=== PATIENT | male | born 1975 | race Two or more races ===

== ENCOUNTER 2017-01-16 01:30 | Emergency (ER) | payer OTHER ==
[2017-01-16] MEDS ORDERED: ASPIRIN 81 MG TABLET, CHEWABLE PO ONE (05:46)
[2017-01-16] MEDS ORDERED: OXYCODONE HCL IR 5 MG TABLET PO ONE (05:49)
[2017-01-16] MEDS ORDERED: ONDANSETRON HCL INJ/PF 4 MG/2 ML SDV IV ONE (05:50)
--- NOTE | 2017-01-16 05:50 | ER Document Report ---
ED Medical Screen (RME) - General Chief Complaint: Chest Pain Stated Complaint: CHEST PAIN Time Seen by Provider: 01/16/17 05:45 Mode of Arrival: Ambulatory Information source: Patient Notes: Patient presents complaining of right-sided chest pain that started yesterday. Patient states pain varies in intensity but is still present. Patient does report some nausea but denies any vomiting. Patient denies any fever or cough. Patient states pain worsens when he lies down. Patient does have tenderness to right upper quadrant area. hx: Back pain and leg pain, hernia repair appendectomy, multiple orthopedic surgeries TRAVEL OUTSIDE OF THE [place] IN LAST 30 DAYS: No - Related Data Allergies/Adverse Reactions: tramadol [Tramadol] Allergy (Verified 03/22/15 20:35) trazodone [Trazodone] Adverse Reaction (Verified 03/19/15 21:44) Past Medical History Renal/ Medical History: Reports: Hx Kidney Stones. Denies: Hx Peritoneal Dialysis Psychiatric Medical History: Reports: Hx Depression Infectious Medical History: Denies: Hx MRSA Past Surgical History: Reports: Hx Abdominal Surgery - hernia repair, Hx Appendectomy, Hx Orthopedic Surgery - right leg, Hx Tonsillectomy - Immunizations Hx Diphtheria, Pertussis, Tetanus Vaccination: Yes Physical Exam - Vital signs Vitals: Temp Pulse Resp BP Pulse Ox 98.4 F 103 H 20 147/79 H 99 01/16/17 01:47 01/16/17 01:47 01/16/17 01:47 01/16/17 01:47 01/16/17 01:47 - Abdominal Tenderness: Tender - Upper quadrant, epigastric Course - Vital Signs Vital signs: Temp Pulse Resp BP Pulse Ox 98.4 F 103 H 20 142/95 H 99 01/16/17 01:47 01/16/17 01:47 01/16/17 01:47 01/16/17 05:32 01/16/17 01:47
[2017-01-16 06:19] LABS: ABSOLUTE BASOPHILS # (AUTO) 0.1 10^3/uL (0.0-0.2); ABSOLUTE EOSINOPHILS # (AUTO) 0.2 10^3/uL (0.0-0.6); ABSOLUTE LYMPHOCYTES (AUTO) 2.6 10^3/uL (0.5-4.7); ABSOLUTE MONOCYTES (AUTO) 0.7 10^3/uL (0.1-1.4); ABSOLUTE NEUT (AUTO) 6.5 10^3/uL (1.7-8.2); BASOPHILS % (AUTO) 0.6 % (0-2); HEMATOCRIT 43.3 % (37.9-51.0); HGB HCT DIFFERENCE 1.7; LYMPHOCYTES % (AUTO) 25.5 % (13-45); MEAN CORPUSCULAR HEMOGLOBIN 29.3 pg (27.0-33.4); MEAN CORPUSCULAR HGB CONC 34.7 g/dL (32.0-36.0); MEAN CORPUSCULAR VOLUME 85 fl (80-97); MONOCYTES % (AUTO) 7.2 % (3-13); RED BLOOD COUNT 5.12 10^6/uL (4.35-5.55); RED CELL DISTRIBUTION WIDTH 13.5 % (11.5-14.0); SEGMENTED NEUTROPHILS % (AUTO) 64.7 % (42-78); WHITE BLOOD COUNT 10.1 10^3/uL (4.0-10.5)
[2017-01-16 06:36] LABS: ALANINE AMINOTRANSFERASE 93 U/L (21-72); ALBUMIN 4.5 g/dL (3.5-5.0); ALKALINE PHOSPHATASE 69 U/L (38-126); ANION GAP 11 (5-19); ASPARTATE AMINO TRANSFERASE 52 U/L (17-59); BILIRUBIN,DIRECT 0.3 mg/dL (0.0-0.4); BILIRUBIN,TOTAL 0.9 mg/dL (0.2-1.3); BLOOD UREA NITROGEN 14 mg/dL (7-20); CALCIUM 9.5 mg/dL (8.4-10.2); CARBON DIOXIDE 26 mmol/L (22-30); CHLORIDE 103 mmol/L (98-107); CREATINE KINASE 228 U/L (55-170); GLUCOSE 107 mg/dL (75-110); LIPASE 80.5 U/L (23-300); POTASSIUM 4.5 mmol/L (3.6-5.0); SODIUM 140.1 mmol/L (137-145); TOTAL PROTEIN 7.7 g/dL (6.3-8.2)
[2017-01-16 06:40] LABS: APPEARANCE,URINE CLEAR; BILIRUBIN,URINE NEGATIVE (NEGATIVE); GLUCOSE, URINE NEGATIVE (NEGATIVE); KETONES,URINE NEGATIVE (NEGATIVE); LEUKOCYTE ESTERASE,URINE NEGATIVE (NEGATIVE); NITRITE,URINE NEGATIVE (NEGATIVE); PROTEIN,URINE NEGATIVE (NEGATIVE); URINE SPECIFIC GRAVITY 1.005; UROBILINOGEN,URINE NEGATIVE mg/dL (<2.0)
[2017-01-16 06:48] LABS: CREATINE KINASE MB 1.61 ng/mL (<4.55)
[2017-01-16 06:49] LABS: TROPONIN I < 0.012 ng/mL
--- NOTE | 2017-01-16 06:50 | RADIOLOGY REPORT (SQ) ---
EXAM DESCRIPTION: U/S ABDOMEN LIMITED W/O DOP COMPLETED DATE/TIME: 01/16/2017 6:38 am REASON FOR STUDY: RUQ pain COMPARISON: CT, 03/19/2015. TECHNIQUE: Dynamic and static grayscale images acquired of the abdomen and recorded on PACS. Additio nal selected color Doppler and spectral images recorded. LIMITATIONS: Body habitus. Bowel gas. FINDINGS: PANCREAS: Obscured. LIVER: Mild hepatomegaly measuring 20 cm. Moderate hepatic steatosis. LIVER VASCULATURE: Normal directional flow of the main portal vein and hepatic veins. GALLBLADDER: No stones. Normal wall thickness. No pericholecystic fluid. ULTRASOUND-DETECTED LOPEZ'S SIGN: Negative. INTRAHEPATIC DUCTS AND COMMON DUCT: CBD and intrahepatic ducts normal caliber. No filling defects. INFERIOR VENA CAVA: Normal flow. AORTA: Obscured. RIGHT KIDNEY: 11.9 cm. Normal size. Normal echogenicity. No solid or suspicious masses. No hydronep hrosis. No calcifications. PERITONEAL AND RIGHT PLEURAL SPACE: No ascites or effusions. OTHER: No other significant findings. IMPRESSION: Mild hepatomegaly. Limitation. TECHNICAL DOCUMENTATION: JOB ID: [id number] [employer]- All Rights Reserved
[2017-01-16 06:52] LABS: URINE BARBITURATES SCREEN NEGATIVE; URINE METHADONE SCREEN NEGATIVE; URINE OPIATES LOW UNCONFIRMED POSITIVE; URINE PHENCYCLIDINE SCREEN NEGATIVE
--- NOTE | 2017-01-16 06:57 | RADIOLOGY REPORT (SQ) ---
EXAM DESCRIPTION: CHEST PA/LAT COMPLETED DATE/TIME: 01/16/2017 6:47 am REASON FOR STUDY: right side cp COMPARISON: CT, chest, 12/29/2009. EXAM PARAMETERS: NUMBER OF VIEWS: two views TECHNIQUE: Digital Frontal and Lateral radiographic views of the chest acquired. RADIATION DOSE: NA LIMITATIONS: none FINDINGS: LUNGS AND PLEURA: No opacities, masses or pneumothorax. No pleural effusion. MEDIASTINUM AND HILAR STRUCTURES: No masses or contour abnormalities. HEART AND VASCULAR STRUCTURES: Heart normal size. No evidence for failure. BONES: No acute findings. HARDWARE: None in the chest. OTHER: No other significant finding. IMPRESSION: NO SIGNIFICANT RADIOGRAPHIC FINDING IN THE CHEST. TECHNICAL DOCUMENTATION: JOB ID: [id number] [employer]- All Rights Reserved
[2017-01-16] MEDS ORDERED: LIDOCAINE 5% (700 MG) TRANSDERMAL ADH..PATCH TP ONE (07:24)
--- NOTE | 2017-01-16 07:24 | ER Document Report ---
ED General - General Chief Complaint: Chest Pain Stated Complaint: CHEST PAIN Time Seen by Provider: 01/16/17 05:45 Mode of Arrival: Ambulatory TRAVEL OUTSIDE OF THE [place] IN LAST 30 DAYS: No - HPI Patient complains to provider of: Chest pain Notes: Patient is coming in for evaluation of right upper chest pain right lower quadrant pain. States ongoing for approximately the last 1224 hrs. Denies any recent travel denies any recent trauma. Denies fevers chills nausea vomiting diarrhea. Patient currently is on multiple pain medications for chronic pain. Upon my evaluation patient is resting comfortably no obvious distress - Related Data Allergies/Adverse Reactions: tramadol [Tramadol] Allergy (Verified 03/22/15 20:35) trazodone [Trazodone] Adverse Reaction (Verified 03/19/15 21:44) Past Medical History - General Information source: Patient - Social History Smoking Status: Unknown if Ever Smoked Family History: Reviewed & Not Pertinent Patient has suicidal ideation: No Patient has homicidal ideation: No Renal/ Medical History: Reports: Hx Kidney Stones. Denies: Hx Peritoneal Dialysis Psychiatric Medical History: Reports: Hx Depression Infectious Medical History: Denies: Hx MRSA Past Surgical History: Reports: Hx Abdominal Surgery - hernia repair, Hx Appendectomy, Hx Orthopedic Surgery - right leg, Hx Tonsillectomy - Immunizations Hx Diphtheria, Pertussis, Tetanus Vaccination: Yes Review of Systems - Review of Systems Constitutional: No symptoms reported EENT: No symptoms reported Cardiovascular: Chest pain Respiratory: No symptoms reported Gastrointestinal: Abdominal pain Genitourinary: No symptoms reported Male Genitourinary: No symptoms reported Musculoskeletal: No symptoms reported Skin: No symptoms reported Hematologic/Lymphatic: No symptoms reported Neurological/Psychological: No symptoms reported -: Yes All other systems reviewed and negative Physical Exam - Vital signs Vitals: Temp Pulse Resp BP Pulse Ox 98.4 F 103 H 20 147/79 H 99 01/16/17 01:47 01/16/17 01:47 01/16/17 01:47 01/16/17 01:47 01/16/17 01:47 Interpretation: Normal - General General appearance: Appears well, Alert - HEENT Head: Normocephalic, Atraumatic Eyes: Normal Pupils: PERRL - Respiratory Respiratory status: No respiratory distress Chest status: Nontender Breath sounds: Normal Chest palpation: Normal - Cardiovascular Rhythm: Regular Heart sounds: Normal auscultation Murmur: No - Abdominal Inspection: Normal Distension: No distension Bowel sounds: Normal Tenderness: Nontender Organomegaly: No organomegaly - Back Back: Normal, Nontender - Extremities General upper extremity: Normal inspection, Nontender, Normal color, Normal ROM , Normal temperature General lower extremity: Normal inspection, Nontender, Normal color, Normal ROM , Normal temperature, Normal weight bearing. No: Lynne's sign - Neurological Neuro grossly intact: Yes Cognition: Normal Orientation: AAOx4 [place] Coma Scale Eye Opening: Spontaneous Cory Coma Scale Verbal: Oriented Cory Coma Scale Motor: Obeys Commands [place] Coma Scale Total: 15 Speech: Normal Motor strength normal: LUE, RUE, LLE, RLE Sensory: Normal - Psychological Associated symptoms: Normal affect, Normal mood - Skin Skin Temperature: Warm Skin Moisture: Dry Skin Color: Normal Course - Re-evaluation Re-evalutation: 01/16/17 10:51 The patient has atypical chest pain as the patient's chest pain is not suggestive of pulmonary embolus, cardiac ischemia, aortic dissection, or other serious etiology. Given the extremely low risk of these diagnoses further testing and evaluation for these possibilities does not appear to be indicated at this time. The patient has been instructed to return if the symptoms worsen or change in any way. - Vital Signs Vital signs: Temp Pulse Resp BP Pulse Ox 98.4 F 103 H 17 128/83 H 99 01/16/17 01:47 01/16/17 01:47 01/16/17 07:04 01/16/17 07:04 01/16/17 07:04 - Laboratory Result Diagrams: 01/16/17 06:06 01/16/17 06:06 Laboratory results interpreted by me: 01/16/17 06:06 ALT 93 H Creatine Kinase 228 H Discharge - Discharge Clinical Impression: Right-sided chest wall pain Condition: Good Disposition: HOME, SELF-CARE Instructions: Chest Wall Pain ([facility]), Chest Pain of Unclear Cause ([facility]) Additional Instructions: Your laboratory studies today show no signs of significant pathology no signs of heart damage pneumonia infection your ultrasound also only shows a fatty liver however no other gallbladder disease. More likely to fatty liver is due to diet. I recommend you follow-up with your primary care physician. Please continue take your medications as prescribed. If you receive good pain relief with the Lidoderm patch I would highly recommend following up with your pharmacist to ask about [id number] options if he cannot afford the prescription. Prescriptions: Lidocaine [Lidoderm 5% (700 mg) Transdermal Patch] 1 patch TP DAILY #10 adh..patch Forms: Return to Work
[2017-01-16 08:12] VITALS: BP 128/83
--- NOTE | 2017-01-18 09:27 | EKG REPORT ---
SEVERITY:- BORDERLINE ECG - SINUS TACHYCARDIA BORDERLINE LEFT AXIS DEVIATION BORDERLINE T WAVE ABNORMALITIES : Confirmed by: Tony Marrero 18-Jan-2017 09:26:50
== END 2017-01-16 07:54 | disposition home or self-care (01) ==
LOC: ER 01:30
DX: R07.89 Other chest pain (principal); R10.31 Right lower quadrant pain; G89.29 Other chronic pain; Z79.899 Other long term (current) drug therapy; Z88.5 Allergy status to narcotic agent; Z87.442 Personal history of urinary calculi; Z90.49 Acquired absence of other specified parts of digestive tract
CPT/HCPCS: 93005; 99285; 96374; 36415; 82553; 82550; 83690; 85025; 80053; 81001; 84484; 80307; 71020; 76705; 93010; J2405

== ENCOUNTER 2017-04-29 14:28 | Emergency (ER) | payer OTHER ==
[2017-04-29 15:02] VITALS: BP 166/85
--- NOTE | 2017-04-29 16:37 | RADIOLOGY REPORT (SQ) ---
EXAM DESCRIPTION: HAND LEFT 3 VIEWS COMPLETED DATE/TIME: 04/29/2017 3:45 pm REASON FOR STUDY: finger pain COMPARISON: 02/26/2013 EXAM PARAMETERS: NUMBER OF VIEWS: Three views. TECHNIQUE: AP, lateral and oblique radiographic images acquired of the left hand. LIMITATIONS: None. FINDINGS: Normal bone density. No acute fracture. There are postsurgical changes along the 3rd finger DIP joint and distal phalanx radial aspect, with resection of some of the soft tissue and radial base of the distal phalanx. This is unchanged from . Along the 2nd finger DIP joint, a 1.3 x 0.8 cm soft tissue nodule is present containing a single smal l calcification. There is adjacent pressure erosion of the radial base 2nd finger distal phalanx sim ilar compared to 02/26/2013. In the middle phalanx 2nd finger, a benign-appearing chondroid lesion is present. Remainder of the hand is otherwise unremarkable. IMPRESSION: No acute findings. Postsurgical changes 3rd finger near the DIP joint. Small soft tissue nodule is present along the radial aspect, 2nd finger DIP joint. There is benign-a ppearing pressure erosion along the radial base of the distal phalanx, unchanged from 02/26/2013 TECHNICAL DOCUMENTATION: JOB ID: [id number] [employer]- All Rights Reserved
[2017-04-29] MEDS ORDERED: OXYCODONE-ACETAMINOPHEN 5-325 MG TABLET PO ONE (16:50)
[2017-04-29] MEDS ORDERED: SULFAMETHOXAZOLE/TRIMETHOPRIM 800-160 MG TABLET PO ONE (16:50)
--- NOTE | 2017-04-29 16:51 | ER Document Report ---
ED Hand/Wrist Injury - General Chief Complaint: Hand Pain Stated Complaint: LEFT FINGER PAIN Time Seen by Provider: 04/29/17 16:23 Mode of Arrival: Ambulatory Information source: Patient TRAVEL OUTSIDE OF THE [place] IN LAST 30 DAYS: No - HPI Patient complains to provider of: Finger pain and swelling with redness Injury to: Index finger Onset: Yesterday Timing: Worse Quality of pain: Achy, Pressure Severity: Moderate Pain Level: 4 Notes: Patient is a 42-year-old male presenting to the emergency room complaining of painful redness and swelling to the distal portion of his left second finger, symptoms have been going on for the past 2-3 days, he has a history of infection to this area intermittently since having a crush injury to the fingers in 2012, states he generally uses a pair of pliers to remove the nail from this finger because he has an ingrown fingernail regularly, he reports expressing purulent fluid from the finger over the last 2-3 days, denies any fevers, no new injury, patient was sent from the [place] clinic for evaluation and treatment - Related Data Allergies/Adverse Reactions: No Known Allergies Allergy (Unverified 04/29/17 15:02) Past Medical History - General Information source: Patient - Social History Smoking Status: Unknown if Ever Smoked Chew tobacco use (# tins/day): No Frequency of alcohol use: None Drug Abuse: None Family History: Reviewed & Not Pertinent Patient has suicidal ideation: No Patient has homicidal ideation: No Renal/ Medical History: Reports: Hx Kidney Stones. Denies: Hx Peritoneal Dialysis Psychiatric Medical History: Reports: Hx Depression Infectious Medical History: Denies: Hx MRSA Past Surgical History: Reports: Hx Abdominal Surgery - hernia repair, Hx Appendectomy, Hx Orthopedic Surgery - right leg, Hx Tonsillectomy - Immunizations Hx Diphtheria, Pertussis, Tetanus Vaccination: Yes Review of Systems - Review of Systems Constitutional: No symptoms reported EENT: No symptoms reported Cardiovascular: No symptoms reported Respiratory: No symptoms reported Gastrointestinal: No symptoms reported Genitourinary: No symptoms reported Male Genitourinary: No symptoms reported Musculoskeletal: No symptoms reported Skin: See HPI Hematologic/Lymphatic: No symptoms reported Neurological/Psychological: No symptoms reported -: Yes All other systems reviewed and negative Physical Exam - Vital signs Vitals: Temp Pulse Resp BP Pulse Ox 99.2 F 84 18 166/85 H 99 04/29/17 14:59 04/29/17 14:59 04/29/17 14:59 04/29/17 14:59 04/29/17 14:59 - Notes Notes: - General General appearance: Appears well, Alert In distress: None - HEENT Head: Normocephalic, Atraumatic Eyes: Normal Conjunctiva: Normal Extraocular movements intact: Yes Eyelashes: Normal Pupils: PERRL - Respiratory Respiratory status: No respiratory distress - Cardiovascular Rhythm: Regular - Abdominal Inspection: Normal - Back Back: Normal - Extremities General upper extremity: Distal portion of left second digit erythematous with mild swelling, no purulent discharge, tender to palpate, distal sensation and motor is intact with brisk capillary refill General lower extremity: Normal inspection - Neurological Neuro grossly intact: Yes Orientation: AAOx4 Cory Coma Scale Eye Opening: Spontaneous [place] Coma Scale Verbal: Oriented Cory Coma Scale Motor: Obeys Commands [place] Coma Scale Total: 15 - Psychological Associated symptoms: Normal affect, Normal mood - Skin Skin Temperature: Warm Skin Moisture: Dry Skin Color: Normal Course - Re-evaluation Re-evalutation: 04/29/17 17:40 Patient's physical exam findings are consistent with cellulitis to the distal portion of the left second digit, history of this recurring since having a traumatic injury to this area 3 years ago, patient reports he usually takes oral antibiotics and it resolves intermittently, he has never been seen by a hand surgeon in the past for this but was sent from the [place] clinic, patient was started on oral antibiotics and pain medication and given information to follow- up with orthopedics for further evaluation and treatment, patient acknowledges understanding and agreement with this plan - Vital Signs Vital signs: Temp Pulse Resp BP Pulse Ox 99.2 F 84 18 166/85 H 99 04/29/17 14:59 04/29/17 14:59 04/29/17 14:59 04/29/17 14:59 04/29/17 14:59 - Diagnostic Test Radiology reviewed: Image reviewed, Reports reviewed Discharge - Discharge Clinical Impression: Cellulitis of finger of left hand Condition: Stable Disposition: HOME, SELF-CARE Instructions: Cellulitis ([facility]) Additional Instructions: Follow up with your primary care provider and an orthopedic surgeon in one to 2 days. Return to the emergency room immediately if symptoms worsen or any additional concerns. Prescriptions: Oxycodone HCl/Acetaminophen [Percocet 5-325 mg Tablet] 1 - 2 tab PO ASDIR PRN # 15 tablet PRN Reason: Sulfamethoxazole/Trimethoprim [Bactrim Ds Tablet] 1 each PO BID #20 tablet Referrals: DEBO GUPTA DO [ACTIVE STAFF] - Follow up as needed
== END 2017-04-29 17:03 | disposition home or self-care (01) ==
LOC: ER 14:28
DX: L03.012 Cellulitis of left finger (principal); Z87.828 Personal history of other (healed) physical injury and trauma
CPT/HCPCS: 99283

== ENCOUNTER 2017-09-08 01:42 | Emergency (ER) | payer OTHER ==
--- NOTE | 2017-09-08 02:47 | ER Document Report ---
ED General - General Chief Complaint: Flu Symptoms Stated Complaint: COLD SYMPTOMS Time Seen by Provider: 09/08/17 02:38 Notes: Patient is a 42-year-old male who presents with complaint of congestion and cough. No sore throat. He had a fever 102 at home which broke this morning with [id number] medications. He said no fever since. He has no chronic medical problems. Is a healthy homer. He does not smoke. Denies abdominal pain. No nausea vomiting. No chest pain. He has been coughing up yellowish greenish type sputum. No other complaints at this time. TRAVEL OUTSIDE OF THE [place] IN LAST 30 DAYS: No - Related Data Allergies/Adverse Reactions: No Known Allergies Allergy (Verified 09/08/17 01:43) Past Medical History - Social History Smoking Status: Never Smoker Chew tobacco use (# tins/day): No Frequency of alcohol use: None Drug Abuse: None Family History: Reviewed & Not Pertinent Patient has suicidal ideation: No Patient has homicidal ideation: No Renal/ Medical History: Reports: Hx Kidney Stones. Denies: Hx Peritoneal Dialysis Psychiatric Medical History: Reports: Hx Depression Infectious Medical History: Denies: Hx MRSA Past Surgical History: Reports: Hx Abdominal Surgery - hernia repair, Hx Appendectomy, Hx Orthopedic Surgery - right leg, Hx Tonsillectomy - Immunizations Hx Diphtheria, Pertussis, Tetanus Vaccination: Yes Review of Systems - Review of Systems Notes: My Normal Review Basic REVIEW OF SYSTEMS: CONSTITUTIONAL : Fevers. EENT: Congestion. RESPIRATORY: Productive cough. GASTROINTESTINAL: Denies abdominal pain. Denies nausea, vomiting, or diarrhea. Denies constipation. Last BM: MUSCULOSKELETAL: Denies neck or back pain or joint pain or swelling. SKIN: Denies rash or skin lesions. NEUROLOGICAL: Denies altered mental status or loss of consciousness. Denies headache. Denies weakness or paralysis or loss of use of either side. Denies problems with gait or speech. Denies sensory or motor loss. ALL OTHER SYSTEMS REVIEWED AND NEGATIVE. Physical Exam - Vital signs Vitals: Temp Pulse Resp BP Pulse Ox 98.5 F 80 18 137/96 H 97 09/08/17 01:53 09/08/17 01:53 09/08/17 01:53 09/08/17 01:53 09/08/17 01:53 - Notes Notes: General Appearance: Well nourished, alert, cooperative, no acute distress, no obvious discomfort. Well-appearing. Vitals: reviewed, See vital signs table. Head: no swelling or tenderness to the head Eyes: PERRL, EOMI, Conjuctiva clear Mouth: No decreasd moisture Throat: No tonsillar inflammation, No airway obstruction, No lymphadenopathy Ears: Normal-appearing tympanic membranes bilaterally. Neck: No neck swelling. No lymphadenopathy. Lungs: No wheezing, No rales, No rhonci, No accessory muscle use, good air exchange bilaterally. Heart: Normal rate, Regular rythm, No murmur, no rub Abdomen: Normal BS, soft, No rigidity, No abdominal tenderness, No guarding, no rebound, no abdominal masses, no organomegaly Extremities: strength 5/5 in all extremities, good pulses in all extremities, no swelling or tenderness in the extremities, no edema. Skin: warm, dry, appropriate color, no rash Neuro: speech clear, oriented x 3, normal affect, responds appropriately to questions. Course - Re-evaluation Re-evalutation: 09/08/17 06:47 Patient has recurrent dry cough on exam but clinically looks well. His lung garcia are clear. Chest x-rays obtained is negative for pneumonia. Feel he is safe to be discharged home. Most likely has a viral illness causing his cough and congestion. I encouraged him to continue treat his fever symptomatically with Tylenol Motrin. I will prescribe some Tessalon Perles to help with his cough. I encourage him return to ER if he has worsening fevers, difficulty breathing, or feels that he is worsening. Patient agrees with plan will be discharged home. Dictation of this chart was performed using voice recognition software; therefore, there may be some unintended grammatical errors. - Vital Signs Vital signs: Temp Pulse Resp BP Pulse Ox 98.6 F 76 20 135/86 H 98 09/08/17 04:49 09/08/17 04:49 09/08/17 04:49 09/08/17 04:49 09/08/17 04:49 Discharge - Discharge Clinical Impression: Cough Condition: Good Disposition: HOME, SELF-CARE Additional Instructions: Please return to the ER immediately if you develop difficulty breathing, fevers , or feel unwell. Prescriptions: Benzonatate [Tessalon Perle 100 mg Capsule] 100 mg PO Q8HP PRN #20 cap PRN Reason:
--- NOTE | 2017-09-08 03:34 | RADIOLOGY REPORT (SQ) ---
EXAM DESCRIPTION: CHEST PA/LAT COMPLETED DATE/TIME: 09/08/2017 3:00 am REASON FOR STUDY: cough COMPARISON: Chest x-ray 01/16/2017. EXAM PARAMETERS: NUMBER OF VIEWS: two views TECHNIQUE: Digital Frontal and Lateral radiographic views of the chest acquired. RADIATION DOSE: NA LIMITATIONS: none FINDINGS: LUNGS AND PLEURA: No consolidation, pneumothorax or pleural effusion. MEDIASTINUM AND HILAR STRUCTURES: No masses or contour abnormalities. HEART AND VASCULAR STRUCTURES: Heart normal size. No evidence for failure. BONES: No acute findings. HARDWARE: None in the chest. IMPRESSION: No acute radiographic finding in the chest. TECHNICAL DOCUMENTATION: JOB ID: [id number] [employer]- All Rights Reserved
[2017-09-08 04:50] VITALS: BP 135/86
== END 2017-09-08 04:00 | disposition home or self-care (01) ==
LOC: ER 01:42
DX: R05 Cough (principal); R50.9 Fever, unspecified
CPT/HCPCS: 71046; 99283

== ENCOUNTER 2019-12-03 08:03 | Emergency (ER) | payer OTHER ==
[2019-12-03 08:07] VITALS: BP 158/75
--- NOTE | 2019-12-03 08:58 | ER Document Report ---
ED General - General Chief Complaint: Fall Stated Complaint: FALL/ARM PAIN Time Seen by Provider: 12/03/19 08:22 Primary Care Provider: [place] [Primary Care Provider] - Follow up as needed TRAVEL OUTSIDE OF THE [place] IN LAST 30 DAYS: No - HPI Notes: Chief complaint: Injury left forearm History of present illness: 44-year-old male stumbled over a curb in a parking lot as he was entering a store 5 days ago. He fell and caught himself on his outstretched left hand. He initially had pain and stiffness involving the left shoulder and left wrist and left elbow. He has been treating this himself with [id number] ibuprofen and ice packs. Symptoms have been generally improved except for the area of the mid forearm where he has persistent pain and swelling and he decided that he should come in get an x-ray. He denies any associated head or neck injury. He did sustain an abrasion of his left hallux and he has been treating this with antibiotic ointment and reports improvement. Patient is followed at the [facility] outpatient clinic. He is a type II diabetic. - Related Data Allergies/Adverse Reactions: No Known Allergies Allergy (Verified 09/08/17 01:43) Past Medical History - General Information source: Patient - Social History Smoking Status: Never Smoker Frequency of alcohol use: None Drug Abuse: None Occupation: Retired Family History: Reviewed & Not Pertinent - Past Medical History Cardiac Medical History: Reports: None Pulmonary Medical History: Reports: None Endocrine Medical History: Reports: Hx Diabetes Mellitus Type 2 Renal/ Medical History: Reports: Hx Kidney Stones. Denies: Hx Peritoneal Dialysis Musculoskeletal Medical History: Reports Hx Musculoskeletal Trauma Psychiatric Medical History: Reports: Hx Depression Infectious Medical History: Denies: Hx MRSA Past Surgical History: Reports: Hx Abdominal Surgery - hernia repair, Hx Appendectomy, Hx Orthopedic Surgery - right leg, Hx Tonsillectomy - Immunizations Hx Diphtheria, Pertussis, Tetanus Vaccination: Yes Review of Systems - Review of Systems Notes: Constitutional: Negative for fever. HENT: Negative for sore throat. Eyes: Negative for visual changes. Cardiovascular: Negative for chest pain. Respiratory: Negative for shortness of breath. Gastrointestinal: Negative for abdominal pain, vomiting or diarrhea. Genitourinary: Negative for dysuria. Musculoskeletal: As per HPI. Skin: Negative for rash. Neurological: Negative for headaches, weakness or numbness. 10 point ROS negative except as marked above and in HPI. Physical Exam - Vital signs Vitals: Temp Pulse Resp BP Pulse Ox 98.3 F 79 18 158/75 H 97 12/03/19 08:06 12/03/19 08:06 12/03/19 08:06 12/03/19 08:06 12/03/19 08:06 - Notes Notes: GENERAL: Stocky male approximately stated age appearing in no acute distress. SKIN: Good turgor no rashes. Patient has a healing abrasion along the lateral aspect of the left hallux at the level of the MTP joint which measures approximately 1.5 cm's in diameter. There is no redness or drainage associated with this and no tenderness. HEAD: Normocephalic atraumatic. EYES: PERRLA. EOMI. Conjunctivae and sclerae clear. NECK: Supple. No masses or thyromegaly. No adenopathy. Carotids 2+ without bruits. No JVD. BACK: Symmetrical without tenderness. CHEST: Respirations unlabored. Breath sounds clear and symmetrical. HEART: Regular rhythm. No murmur gallop or rub. ABDOMEN: Soft nontender without masses, organomegaly or rebound. Bowel sounds normally active. No bruits. EXTREMITIES: Mild soft tissue swelling and tenderness mid forearm area on the left. No crepitus. No bony step-off good range of motion all joints with no other areas of tenderness appreciated. No calf tenderness. Cap refill less than 1.5 seconds. Dorsalis pedis and posterior tibial pulses 3+ and symmetrical. NEUROLOGICAL: Alert and oriented x3. Nonfocal. PSYCHIATRIC: Appropriate affect. Course - Vital Signs Vital signs: Temp Pulse Resp BP Pulse Ox 98.3 F 79 18 158/75 H 97 12/03/19 08:50 12/03/19 08:06 12/03/19 08:06 12/03/19 08:06 12/03/19 08:06 Discharge - Discharge Clinical Impression: Contusion of left forearm Qualifiers: Encounter type: initial encounter Qualified Code(s): S50.12XA - Contusion of left forearm, initial encounter Condition: Stable Disposition: HOME, SELF-CARE Additional Instructions: Ice packs as needed. Use sling as directed. Ibuprofen as needed. Follow-up with your doctor at the [place] [facility]. Return here as needed for new or worsening symptoms. Referrals: [facility] [Primary Care Provider] - Follow up as needed
--- NOTE | 2019-12-03 09:38 | RADIOLOGY REPORT (SQ) ---
EXAM DESCRIPTION: FOREARM LEFT COMPLETED DATE/TIME: 12/03/2019 9:24 am REASON FOR STUDY: injury COMPARISON: None. NUMBER OF VIEWS: Two views. TECHNIQUE: Two radiographic images acquired of the left forearm, including elbow and wrist in at matt st one projection. LIMITATIONS: None. FINDINGS: MINERALIZATION: Normal. BONES: No acute fracture. No worrisome bone lesions. SOFT TISSUES: No obvious swelling or foreign body. OTHER: No other significant finding. IMPRESSION: NEGATIVE STUDY OF THE LEFT FOREARM. NO RADIOGRAPHIC EVIDENCE OF ACUTE INJURY. TECHNICAL DOCUMENTATION: JOB ID: [id number] 2010 [employer]- All Rights Reserved Reading location - IP/workstation name: [email or web address]INTENANCE [email or web address]
== END 2019-12-03 11:25 | disposition home or self-care (01) ==
LOC: ER 08:03
DX: S50.12XA Contusion of left forearm, initial encounter (principal); M79.602 Pain in left arm; W10.1XXA Fall (on)(from) sidewalk curb, initial encounter; Y92.481 Parking lot as the place of occurrence of the external cause; E11.9 Type 2 diabetes mellitus without complications; Z87.442 Personal history of urinary calculi
CPT/HCPCS: 99283

== ENCOUNTER 2020-06-24 12:31 | Emergency (ER) | payer OTHER ==
[2020-06-24] MEDS ORDERED: ONDANSETRON 4 MG TAB.RAPDIS PO ONE (13:23)
[2020-06-24] MEDS ORDERED: KETOROLAC TROMETHAMINE 60 MG/2 ML SDV IM ONE (13:23)
--- NOTE | 2020-06-24 13:26 | ER Document Report ---
ED Medical Screen (RME) - General Chief Complaint: Flank Pain Stated Complaint: FLANK PAIN Time Seen by Provider: 06/24/20 13:22 Primary Care Provider: DANITA ARTHUR [Primary Care Provider] - Follow up as needed Mode of Arrival: Ambulatory Information source: Patient Notes: 45-year-old male presented to ED for complaint of right flank pain with nausea. He states the pain started on Wednesday and he does have blood in his urine. He does have a history of kidney stones. He states the last 1 was in 2015 at which time he had a lithotripsy. Is alert oriented respirations regular nonlabored speaking in full sentences. We will give him a shot of Toradol ODT Zofran and get his blood urine and a CT abdomen pelvis with no contrast. He will be seen by another provider. I have greeted and performed a rapid initial assessment of this patient. A comprehensive ED assessment and evaluation of the patient, analysis of test results and completion of medical decision making process will be conducted by an additional ED providers. TRAVEL OUTSIDE OF THE [place] IN LAST 30 DAYS: No - Related Data Allergies/Adverse Reactions: No Known Allergies Allergy (Verified 06/24/20 13:23) Past Medical History Endocrine Medical History: Reports: Hx Diabetes Mellitus Type 2 Renal/ Medical History: Reports: Hx Kidney Stones. Denies: Hx Peritoneal Dialysis Musculoskeltal Medical History: Reports Hx Musculoskeletal Trauma Psychiatric Medical History: Reports: Hx Depression Infectious Medical History: Denies: Hx MRSA Past Surgical History: Reports: Hx Abdominal Surgery - hernia repair, Hx Appendectomy, Hx Orthopedic Surgery - right leg, Hx Tonsillectomy - Immunizations Hx Diphtheria, Pertussis, Tetanus Vaccination: Yes Physical Exam - Vital signs Vitals: Temp Pulse Resp BP Pulse Ox 98.4 F 85 18 187/89 H 99 06/24/20 13:15 06/24/20 13:15 06/24/20 13:15 06/24/20 13:15 06/24/20 13:15 Course - Vital Signs Vital signs: Temp Pulse Resp BP Pulse Ox 98.4 F 85 18 187/89 H 99 06/24/20 13:15 06/24/20 13:15 06/24/20 13:15 06/24/20 13:15 06/24/20 13:15 Doctor's Discharge - Discharge Referrals: [facility] [Primary Care Provider] - Follow up as needed
--- NOTE | 2020-06-24 13:53 | RADIOLOGY REPORT (SQ) ---
EXAM DESCRIPTION: CT ABD/PELVIS NO ORAL OR IV IMAGES COMPLETED DATE/TIME: 06/24/2020 1:32 pm REASON FOR STUDY: Right flank pain COMPARISON: None. TECHNIQUE: CT scan of the abdomen and pelvis performed without intravenous or oral contrast. Images reviewed with lung, soft tissue, and bone windows. Reconstructed coronal and sagittal MPR images revi ewed. All images stored on PACS. All CT scanners at this facility use dose modulation, iterative reconstruction, and/or weight based d osing when appropriate to reduce radiation dose to as low as reasonably achievable (ALARA). [facility]: Dose Right [facility]: CareDose [facility]: Dose Right [facility]: Teradose 4D [facility]: Smart [employer] RADIATION DOSE: CT Rad equipment meets quality standard of care and radiation dose reduction techniq ues were employed. CTDIvol: 19.2 mGy. DLP: 1130 mGy-cm. LIMITATIONS: None. FINDINGS: LOWER CHEST: Very tiny nodule in the left lower lobe, image 6, series 4. NON-CONTRASTED LIVER, SPLEEN, ADRENALS: Hepatic steatosis. Hepatomegaly, the liver measures 22-23.0 cm in length. The spleen measures 13.7 cm in length and is mildly prominent in size. Evaluation li mited by lack of IV contrast. PANCREAS: No masses. No peripancreatic inflammatory changes. GALLBLADDER: No identified stones by CT criteria. No inflammatory changes to suggest cholecystitis. RIGHT KIDNEY AND URETER: No suspicious masses. Assessment limited by lack of IV contrast. No signif icant calcifications. No hydronephrosis or hydroureter. LEFT KIDNEY AND URETER: No suspicious masses. Assessment limited by lack of IV contrast. No signifi cant calcifications. No hydronephrosis or hydroureter. AORTA AND RETROPERITONEUM: No aneurysm. No retroperitoneal masses or adenopathy. BOWEL AND PERITONEAL CAVITY: No obvious masses or inflammatory changes. No free fluid. APPENDIX: Prior appendectomy. PELVIS, BLADDER, AND ABDOMINAL WALL: Fat containing left inguinal hernia. No free fluid. Bladder i ncompletely distended. BONES: No significant findings. OTHER: No other significant finding. IMPRESSION: 1. NO ACUTE PROCESS IN THE ABDOMEN OR PELVIS. 2. Hepatic steatosis. Hepatomegaly. 3. The spleen is mildly prominent. 4. Prior appendectomy. 5. Fat containing left inguinal hernia. COMMENT: Quality ID # [id number]: Final reports with documentation of one or more dose reduction techniques (e.g., Automated exposure control, adjustment of the mA and/or kV according to patient size, use of iterative reconstruction technique) TECHNICAL DOCUMENTATION: JOB ID: [id number] 2010 [employer]- All Rights Reserved Reading location - IP/workstation name: [email or web address]
[2020-06-24 14:09] LABS: APPEARANCE,URINE SLIGHTLY-CLOUDY; BILIRUBIN,URINE NEGATIVE (NEGATIVE); COLOR,URINE YELLOW; GLUCOSE, URINE NEGATIVE (NEGATIVE); KETONES,URINE NEGATIVE (NEGATIVE); LEUKOCYTE ESTERASE,URINE NEGATIVE (NEGATIVE); NITRITE,URINE NEGATIVE (NEGATIVE); PROTEIN,URINE 100 mg/dL (NEGATIVE); URINE SPECIFIC GRAVITY 1.026; UROBILINOGEN,URINE NEGATIVE mg/dL (<2.0)
[2020-06-24 14:38] LABS: ABSOLUTE EOSINOPHILS # (AUTO) 0.2 10^3/uL (0.0-0.6); ABSOLUTE LYMPHOCYTES (AUTO) 2.7 10^3/uL (0.5-4.7); ABSOLUTE MONOCYTES (AUTO) 0.5 10^3/uL (0.1-1.4); ABSOLUTE NEUT (AUTO) 5.9 10^3/uL (1.7-8.2); BASOPHILS % (AUTO) 0.4 % (0-2); EOSINOPHILS % (AUTO) 1.7 % (0-6); HEMATOCRIT 40.7 % (37.9-51.0); HEMOGLOBIN 13.7 g/dL (13.5-17.0); LYMPHOCYTES % (AUTO) 29.5 % (13-45); MEAN CORPUSCULAR HEMOGLOBIN 27.4 pg (27.0-33.4); MEAN CORPUSCULAR HGB CONC 33.8 g/dL (32.0-36.0); MEAN CORPUSCULAR VOLUME 81 fl (80-97); MONOCYTES % (AUTO) 4.9 % (3-13); PLATELET COUNT 207 10^3/uL (150-450); RED BLOOD COUNT 5.01 10^6/uL (4.35-5.55); RED CELL DISTRIBUTION WIDTH 14.6 % (11.5-14.0); SEGMENTED NEUTROPHILS % (AUTO) 63.5 % (42-78); TOTAL CELLS COUNTED % (AUTO) 100 %; WHITE BLOOD COUNT 9.3 10^3/uL (4.0-10.5)
[2020-06-24 16:11] LABS: ALBUMIN 4.2 g/dL (3.5-5.0); ALKALINE PHOSPHATASE 118 U/L (38-126); ANION GAP 10 (5-19); ASPARTATE AMINO TRANSFERASE 66 U/L (17-59); BILIRUBIN,DIRECT 0.2 mg/dL (0.0-0.4); BILIRUBIN,TOTAL 0.5 mg/dL (0.2-1.3); BLOOD UREA NITROGEN 10 mg/dL (7-20); CALCIUM 9.9 mg/dL (8.4-10.2); CARBON DIOXIDE 31 mmol/L (22-30); CHLORIDE 96 mmol/L (98-107); GLUCOSE 212 mg/dL (75-110); POTASSIUM 4.1 mmol/L (3.6-5.0); TOTAL PROTEIN 7.6 g/dL (6.3-8.2)
[2020-06-24] MEDS ORDERED: VALACYCLOVIR HCL 500 MG TABLET PO ONE (16:53)
[2020-06-24] MEDS ORDERED: LIDOCAINE 5% (700 MG) TRANSDERMAL ADH..PATCH TP ONE (16:53)
--- NOTE | 2020-06-24 17:05 | ER Document Report ---
ED GI/ - General Chief Complaint: Flank Pain Stated Complaint: FLANK PAIN Time Seen by Provider: 06/24/20 13:22 Primary Care Provider: [facility] [Provider Group] - Follow up tomorrow [facility] [[facility]] - Follow up as needed Mode of Arrival: Ambulatory Information source: Patient Notes: Patient presents complaining of right flank pain for the past 3 days. Patient states pain has been constant. Patient reports nausea. Patient denies any vomiting or diarrhea. Patient denies any fever. Patient states he has noticed some blood in his urine. Patient reports a history of kidney stones in the past. TRAVEL OUTSIDE OF THE [place] IN LAST 30 DAYS: No - HPI Patient complains to provider of: Abdominal pain, Flank pain. No: Dysuria, Vomiting Onset: Other - 3 days Timing/Duration: Persistent Quality of pain: Achy Pain Level: 3 Location: RLQ, Right flank Associated symptoms: Hematuria. denies: Diarrhea, Dysuria, Fever, Nausea, Urinary hesitancy, Urinary frequency, Urinary retention, Urinary urgency, Vomiting Exacerbated by: Denies Relieved by: Denies Similar symptoms previously: Yes Recently seen / treated by doctor: No - Related Data Allergies/Adverse Reactions: No Known Allergies Allergy (Verified 06/24/20 13:23) Past Medical History - General Information source: Patient - Social History Smoking Status: Never Smoker Chew tobacco use (# tins/day): No Drug Abuse: None Occupation: None Lives with: Family Family History: Reviewed & Not Pertinent Patient has homicidal ideation: No Endocrine Medical History: Reports: Hx Diabetes Mellitus Type 2 Renal/ Medical History: Reports: Hx Kidney Stones. Denies: Hx Peritoneal Dialysis Musculoskeletal Medical History: Reports Hx Musculoskeletal Trauma Psychiatric Medical History: Reports: Hx Depression Infectious Medical History: Denies: Hx MRSA Past Surgical History: Reports: Hx Abdominal Surgery - hernia repair, Hx Appendectomy, Hx Orthopedic Surgery - right leg, Hx Tonsillectomy - Immunizations Hx Diphtheria, Pertussis, Tetanus Vaccination: Yes Review of Systems - Review of Systems Constitutional: No symptoms reported. denies: Fever EENT: No symptoms reported Cardiovascular: No symptoms reported. denies: Chest pain Respiratory: No symptoms reported. denies: Cough, Short of breath Gastrointestinal: Abdominal pain. denies: Diarrhea, Nausea, Vomiting Genitourinary: Flank pain, Hematuria. denies: Dysuria, Frequency Male Genitourinary: No symptoms reported Musculoskeletal: Back pain Skin: Rash Hematologic/Lymphatic: No symptoms reported Neurological/Psychological: No symptoms reported Physical Exam - Vital signs Vitals: Temp Pulse Resp BP Pulse Ox 98.4 F 85 18 187/89 H 99 06/24/20 13:15 06/24/20 13:15 06/24/20 13:15 06/24/20 13:15 06/24/20 13:15 - Notes Notes: PHYSICAL EXAMINATION: GENERAL: Well-appearing and in no acute distress. HEAD: Atraumatic, normocephalic. EYES: sclera anicteric, conjunctiva are normal. ENT: nares patent. Moist mucous membranes. NECK: Normal range of motion, supple without lymphadenopathy LUNGS: CTAB and equal. No wheezes rales or rhonchi. HEART: Regular rate and rhythm without murmurs ABDOMEN: Morbidly obese, soft, nontender, normal bowel sounds, no guarding. EXTREMITIES: Normal range of motion, no pitting edema. No cyanosis. BACK: No midline tenderness, no step-off or deformity. Right CVA tenderness NEUROLOGICAL: Cranial nerves grossly intact. Normal speech. PSYCH: Normal mood, normal affect. SKIN: Warm, Dry, normal turgor, patient with vesicular rash to the right side of abdomen Course - Re-evaluation Re-evalutation: 06/24/20 17:00 Patient with incidental hematuria, patient encouraged to follow-up with urology for further evaluation of this finding. No evidence of any obstructive uropathy noted on CT scan. Patient does have vesicular skin rash to right side of abdomen worrisome for shingles. Patient states he has had shingles in the past. Suspect this is the likely cause of patient's pain symptoms at this time. Patient verbalized understanding and is agreeable to discharge plan of care at this time. - Vital Signs Vital signs: Temp Pulse Resp BP Pulse Ox 98.5 F 80 16 145/70 H 100 06/24/20 17:13 06/24/20 17:13 06/24/20 17:13 06/24/20 17:13 06/24/20 17:13 - Laboratory Result Diagrams: 06/24/20 14:11 06/24/20 14:11 Laboratory results interpreted by me: 06/24/20 06/24/20 06/24/20 13:35 14:11 14:11 RDW 14.6 H Chloride 96 L Carbon Dioxide 31 H Glucose 212 H AST 66 H ALT 74 H Urine Protein 100 H Urine Blood LARGE H Urine Ascorbic Acid 40 H 06/24/20 17:01 Labs- All tests 24 hr 06/24/20 06/24/20 06/24/20 13:35 14:11 14:11 WBC 9.3 RBC 5.01 Hgb 13.7 Hct 40.7 MCV 81 MCH 27.4 MCHC 33.8 RDW 14.6 H Plt Count 207 Lymph % (Auto) 29.5 [place] % (Auto) 4.9 Eos % (Auto) 1.7 Baso % (Auto) 0.4 Absolute Neuts (auto) 5.9 Absolute Lymphs (auto) 2.7 Absolute Monos (auto) 0.5 Absolute Eos (auto) 0.2 Absolute Basos (auto) 0.0 Seg Neutrophils % 63.5 Sodium 137.1 Potassium 4.1 Chloride 96 L Carbon Dioxide 31 H Anion Gap 10 BUN 10 Creatinine 0.82 Est GFR ( Amer) > 60 Est GFR (MDRD) Non-Af > 60 Glucose 212 H Calcium 9.9 Total Bilirubin 0.5 Direct Bilirubin 0.2 Neonat Total Bilirubin Not Reportable Neonat Direct Bilirubin Not Reportable Neonat Indirect Bili Not Reportable AST 66 H ALT 74 H Alkaline Phosphatase 118 Total Protein 7.6 Albumin 4.2 Urine Color YELLOW Urine Appearance SLIGHTLY-CLOUDY Urine pH 6.0 Ur Specific [place] 1.026 Urine Protein 100 H Urine Glucose (UA) NEGATIVE Urine Ketones NEGATIVE Urine Blood LARGE H Urine Nitrite NEGATIVE Urine Bilirubin NEGATIVE Urine Urobilinogen NEGATIVE Ur Leukocyte Esterase NEGATIVE Urine WBC (Auto) 3 Urine RBC (Auto) >182 U Hyaline Cast (Auto) 2 Squamous Epi Cells Auto <1 Urine Mucus (Auto) FEW Urine Ascorbic Acid 40 H - Diagnostic Test Radiology reviewed: Reports reviewed Discharge - Discharge Clinical Impression: Right sided abdominal pain Hematuria Qualifiers: Hematuria type: unspecified type Qualified Code(s): R31.9 - Hematuria, unspecified Shingles Qualifiers: Herpes zoster complications: without complications Qualified Code(s): B02.9 - Zoster without complications Condition: Stable Disposition: HOME, SELF-CARE Instructions: Abdominal Pain ([facility]), Hematuria ([facility]), Shingles ([facility]) Additional Instructions: Return immediately for any new or worsening symptoms; vomiting, worsening pain, fever or any concerning new symptoms Followup with your primary care provider, call tomorrow to make a followup appointment Follow-up with the urologist for further evaluation of the blood in your urine, call their office tomorrow to make a follow-up appointment. Prescriptions: Lidocaine [Lidoderm 5% (700 mg) Transdermal Patch] 1 patch TP DAILY PRN #10 adh..patch PRN Reason: Hydrocodone/Acetaminophen [[place] 5-325 mg Tablet] 1 tab PO Q6 PRN #8 tablet PRN Reason: Valacyclovir HCl [Valtrex] 1,000 mg PO TID #42 tablet Referrals: [facility] [Primary Care [facility]] - Follow up as needed [facility] [Provider Group] - Follow up tomorrow
[2020-06-24 17:14] VITALS: BP 145/70
== END 2020-06-24 18:08 | disposition home or self-care (01) ==
LOC: ER 12:31
DX: B02.9 Zoster without complications (principal); R31.9 Hematuria, unspecified; R10.9 Unspecified abdominal pain; R11.0 Nausea; Z87.442 Personal history of urinary calculi; E11.9 Type 2 diabetes mellitus without complications
CPT/HCPCS: 99285; 96372; 36415; 85025; 80053; 81001; 74176; J1885; S0119